=== PATIENT | male | born 1950 | race Caucasian/White ===

== ENCOUNTER 2017-03-03 06:55 | Outpatient (CLI) | payer OTHER, MEDICARE ==
[2017-03-03 07:48] LABS: ALT (SGPT) 13 U/L (8-55); AST (SGOT) 22 U/L (5-34); Albumin 4.1 g/dL (3.4-4.8); Alkaline Phosphatase 68 U/L (40-150); Anion Gap 14 mmol/L (10-20); BUN (Urea Nitrogen) 20 mg/dL (8.4-25.7); Bilirubin, Total 1.1 mg/dL (0.2-1.2); Calc. Creatinine Clearance 0 mL/min (70-130); Calcium 9.7 mg/dL (7.8-10.44); Carbon Dioxide 29 mmol/L (23-31); Cardiac Risk 3.5 (Less than 4.5); Chloride 111 mmol/L (98-107); Cholesterol 136 mg/dl (< 200 Desired); Estimated GFR-MDRD 59; Globulin 2.7 g/dL (2.4-3.5); Glucose 126 mg/dL (80-115); HDL Cholesterol 39 mg/dL (>60 Neg Risk); LDL Cholesterol, Calculated 64 mg/dL; Potassium 5.5 mmol/L (3.5-5.1); Protein, Total 6.8 g/dL (5.8-8.1); Sodium 148 mmol/L (136-145); Triglycerides 163 mg/dL (Less than 150)
== END 2017-03-03 06:56 | disposition home or self-care (01) ==
LOC: BURLAB 06:55
PROVIDERS: ATTEND Internal Medicine Cardiovascular Disease
DX: I25.10 Atherosclerotic heart disease of native coronary artery without angina pectoris (principal)
CPT/HCPCS: 36415; 80053; 80061